=== PATIENT | female | born 1940 | race Caucasian/White ===

== ENCOUNTER 2018-03-07 11:37 | Day surgery (SDC) | payer MEDICARE, OTHER ==
[2018-03-07] MEDS ORDERED: MIDAZOLAM 2 MG/2 ML INJ ONE (11:39)
[2018-03-07] MEDS ORDERED: FLUMAZENIL INJ 0.5 MG/5 ML VIAL ONE (11:39)
[2018-03-07] MEDS ORDERED: ONDANSETRON HCL INJ/PF 4 MG/2 ML SDV ONE (11:39)
[2018-03-07] MEDS ORDERED: FENTANYL CITRATE INJ/PF 100 MCG/2 ML AMPUL ONE (11:39)
[2018-03-07] MEDS ORDERED: NALOXONE HCL INJ/PF 0.4 MG/1 ML SDV ONE (11:39)
[2018-03-07] MEDS ORDERED: GLUCAGON,HUMAN RECOMB 1 MG INJ ONE (11:40)
[2018-03-07] MEDS ORDERED: EPINEPHRINE INJ 1 MG/10 ML DISP.SYRIN ONE (11:40)
--- NOTE | 2018-03-07 12:45 | Operative Report ---
Operative Report DATE OF SURGERY: 03/07/18 Operative Report: The risks benefits and alternatives of the procedure explained to the patient in detail and informed consent is obtained.A GIF Olympus video scope was inserted into the patient's mouth and hypopharynx, the esophagus is identified intubated and insufflated, the scope was then advanced through the esophagus stomach and duodenum, retroflexion maneuver is done the esophagus stomach and first and second portions of the duodenum examined PREOPERATIVE DIAGNOSIS: Gastroesophageal reflux disease epigastric pain POSTOPERATIVE DIAGNOSIS: Esophageal ulcer status post biopsy. Large hiatal hernia. Gastritis status post biopsy rule out Helicobacter pylori OPERATION: EGD with biopsy SURGEON: ANSON LEA ANESTHESIA: Moderate Sedation - 2 mg of Versed, 25 mcg of fentanyl. Conscious sedation monitoring time 30 minutes. TISSUE REMOVED OR ALTERED: As noted above. COMPLICATIONS: None. ESTIMATED BLOOD LOSS: None. INTRAOPERATIVE FINDINGS: As noted above. PROCEDURE: Patient tolerated the procedure well. No immediate postprocedure comp occasions are noted. Patient discharged in good condition. Discharge date 03/07/2018. Discharge diet: Regular. Discharge activity: Regular. 2-3-week follow-up to discuss findings. Patient is instructed call the office or proceed to the emergency room should there be any further proximal questions. Wait on the pathology.
[2018-03-07 13:03] VITALS: BP 139/72
== END 2018-03-07 13:05 | disposition home or self-care (01) ==
LOC: END 11:37
PROVIDERS: ATTEND Internal Medicine Gastroenterology
DX: K21.0 Gastro-esophageal reflux disease with esophagitis (principal); K44.9 Diaphragmatic hernia without obstruction or gangrene; K29.70 Gastritis, unspecified, without bleeding; K22.10 Ulcer of esophagus without bleeding; E78.2 Mixed hyperlipidemia; E07.9 Disorder of thyroid, unspecified; Z79.899 Other long term (current) drug therapy
CPT/HCPCS: 43239; 88305 ×2; 88313 ×2; J2250; J3010; J0171; J1610; J2310; J2405; J3490

== ENCOUNTER 2018-03-22 08:09 | Day surgery (SDC) | payer MEDICARE, OTHER ==
[~2018-03-22 08:09] MED LIST: NALOXONE HCL INJ/PF 0.4 MG/1 ML SDV ONE; ONDANSETRON HCL INJ/PF 4 MG/2 ML SDV ONE
[2018-03-22] MEDS ORDERED: FLUMAZENIL INJ 0.5 MG/5 ML VIAL ONE (08:10)
[2018-03-22] MEDS ORDERED: GLUCAGON,HUMAN RECOMB 1 MG INJ ONE (08:10)
[2018-03-22] MEDS ORDERED: EPINEPHRINE INJ 1 MG/10 ML DISP.SYRIN ONE (08:10)
[2018-03-22] MEDS: MIDAZOLAM 2 MG/2 ML INJ ONE ×2 (08:32→08:37)
[2018-03-22] MEDS: FENTANYL CITRATE INJ/PF 100 MCG/2 ML AMPUL ONE ×2 (08:34→08:35)
[2018-03-22 09:54] VITALS: BP 118/60
--- NOTE | 2018-03-22 12:20 | Operative Report ---
Operative Report DATE OF SURGERY: 03/22/18 Operative Report: The risks, benefits and alternatives of the procedure including the risks of bleeding, perforation requiring surgery are explained to the patient in detail and informed consent is obtained. The patient is brought back to the endoscopy suite and placed in the left, lateral decubital position. Timeout was called. Conscious sedation medications are provided.A GIF Olympus video scope was inserted into the patient's mouth and hypopharynx the esophagus is identified intubated and insufflated the scope was then advanced through the esophagus stomach and duodenum retroflexion maneuver is done the esophagus stomach and first and second portions of the duodenum examined PREOPERATIVE DIAGNOSIS: Known history of Mercer's esophagus POSTOPERATIVE DIAGNOSIS: Mercer's esophagus with dysplasia status post ablation with radiofrequency ablation OPERATION: EGD with radiofrequency ablation SURGEON: ANSON LEA ANESTHESIA: Moderate Sedation - 3 mg of Versed, 50 mcg of fentanyl. Conscious sedation monitoring time 30 minutes. TISSUE REMOVED OR ALTERED: As noted above. COMPLICATIONS: None. ESTIMATED BLOOD LOSS: None. INTRAOPERATIVE FINDINGS: As noted above. PROCEDURE: Patient tolerated the procedure well. No immediate postprocedure comp occasions are noted. Patient discharged in good condition. Discharge date 03/22/2018. Discharge diet: Regular. Discharge activity: Regular. 2-3-week follow-up to discuss findings. Patient is instructed to call the office or proceed to the emergency room should there be any further proximal questions.
== END 2018-03-22 09:55 | disposition home or self-care (01) ==
LOC: END 08:09
PROVIDERS: ATTEND Internal Medicine Gastroenterology
DX: K22.70 Barrett's esophagus without dysplasia (principal); K21.9 Gastro-esophageal reflux disease without esophagitis; E07.9 Disorder of thyroid, unspecified; E78.2 Mixed hyperlipidemia; K44.9 Diaphragmatic hernia without obstruction or gangrene; Z79.899 Other long term (current) drug therapy
CPT/HCPCS: 43270; J2250; J3010; J0171; J1610; J2310; J2405; J3490

== ENCOUNTER 2019-10-06 08:30 | Day surgery (SDC) | payer MEDICARE ==
[~2019-10-06 08:30] MED LIST changes: -NALOXONE HCL INJ/PF 0.4 MG/1 ML SDV ONE; -ONDANSETRON HCL INJ/PF 4 MG/2 ML SDV ONE; +PROPOFOL INJ 200 MG/20 ML VIAL IV ONE
--- NOTE | 2019-10-06 11:26 | Operative Report ---
Operative Report DATE OF SURGERY: 10/06/19 Operative Report: The risk, benefits and alternatives of the procedure including the risks of bleeding, perforation requiring surgery have been explained to the patient in detail and informed consent has been obtained. Patient is brought back to the operating room and placed in a left, lateral decubital position. Timeout was called. Propofol medication is administered. Rectal examination is done which did not reveal any masses, tears or fissures. An Olympus videoscope was introduced into the patient's rectum. Scope was then carefully advanced all the way to the cecum. The cecum was identified by the usual anatomical landmarks including the ileocecal valve as well as the appendiceal office. Photodocumentation is obtained. Scope was then sequentially pulled back via the various segments of the colon including the ascending colon, hepatic flexure, transverse colon, splenic flexure, descending colon finding to the rectosigmoid portions of the colon. Retroflexion maneuvers performed. PREOPERATIVE DIAGNOSIS: Change in bowel habits POSTOPERATIVE DIAGNOSIS: Right side colon Inflammation status post biopsy. Diverticulosis without any evidence of diverticulitis. internal hemorrhoids OPERATION: Colonoscopy with biopsy SURGEON: ANSON LEA ANESTHESIA: LMAC TISSUE REMOVED OR ALTERED: As noted above. COMPLICATIONS: None. ESTIMATED BLOOD LOSS: None. INTRAOPERATIVE FINDINGS: As noted above. PROCEDURE: Patient tolerated the procedure well. No immediate postprocedure complications are noted. Patient is discharged in good condition. Discharge date 10/06/2019. Discharge diet: Regular. Discharge activity: Regular. 2 to 3-week follow-up to discuss findings. Patient is instructed call the office or proceed to the emergency room should there be any further problems or questions. Wait on the pathology.
[2019-10-06 13:50] VITALS: BP 162/66
== END 2019-10-06 12:25 | disposition home or self-care (01) ==
LOC: OROUT 08:30
PROVIDERS: ATTEND Internal Medicine Gastroenterology
DX: K57.30 Diverticulosis of large intestine without perforation or abscess without bleeding (principal); K52.9 Noninfective gastroenteritis and colitis, unspecified; K64.8 Other hemorrhoids; E78.2 Mixed hyperlipidemia; J44.9 Chronic obstructive pulmonary disease, unspecified; E07.9 Disorder of thyroid, unspecified; Z79.899 Other long term (current) drug therapy; Z03.818 Encounter for observation for suspected exposure to other biological agents ruled out
CPT/HCPCS: 45380; 88305 ×2; U0003; J2704; C9803; 811; 87635